=== PATIENT | female | born 1935 | race Caucasian/White ===

== ENCOUNTER → 2017-01-05 | Outpatient (CLI) | payer OTHER, BC | LOC: BHFA 15:30 | PROVIDERS: ATTEND Internal Medicine Cardiovascular Disease | DX: I35.1 Nonrheumatic aortic (valve) insufficiency (principal); I25.10 Atherosclerotic heart disease of native coronary artery without angina pectoris ==

== ENCOUNTER → 2017-02-20 | Outpatient (CLI) | payer OTHER, BC | LOC: FIMAGING 11:11 | PROVIDERS: ATTEND Internal Medicine | DX: Z12.31 Encounter for screening mammogram for malignant neoplasm of breast (principal) | CPT/HCPCS: G0202 ==

== ENCOUNTER 2017-03-02 13:37 | Emergency (ER) | payer OTHER, BC ==
--- NOTE | 2017-03-02 14:34 | EDPHY ---
H & P Stated Complaint: BRUISING AND PAIN (RESOLVED) IN LEFT CALF HPI/ROS: HPI CHIEF COMPLAINT: Left calf pain, ecchymosis left index finger. HISTORY OF PRESENT ILLNESS: This patient very pleasant 81-year-old female, significant past medical history for hypertension, hyperlipidemia, not on any anticoagulation however does take baby aspirin 81 mg 3 times per week. She presents emergency room with left calf pain intermittently over the past 3-4 days. Also states she noticed some bruising to the medial aspect of her left index finger. Does not remember any significant trauma. She denies chest pain or shortness of breath. Denies fever. She is unsure if she injured her calf or has a clot. That is what brought her to the emergency room for evaluation. Past Medical History: Hypertension, hyperlipidemia, aspirin 3 times per week. Past Surgical History: No recent surgery Social History: Denies daily use of drugs alcohol tobacco products Family History: Noncontributory ROS REVIEW OF SYSTEMS: A comprehensive 10 point review of systems is otherwise negative aside from elements mentioned in the history of present illness. Exam Constitutional appears well nontoxic triage nursing summary reviewed, vital signs reviewed, awake/alert. Eyes normal conjunctivae and sclera, EOMI, PERRLA. HENT normal inspection, atraumatic, moist mucus membranes, no epistaxis, neck supple/ no meningismus, no raccoon eyes. Respiratory clear to auscultation bilaterally, normal breath sounds, no respiratory distress, no wheezing. Cardiovascular rate normal, regular rhythm, no murmur, no edema, distal pulses normal. Gastrointestinal soft, non-tender, no rebound, no guarding, normal bowel sounds, no distension, no pulsatile mass. Genitourinary no CVA tenderness. Musculoskeletal left lower extremity: No significant left lower extremity swelling, neurovascularly intact with a CT cap refill, good pulse. Nontender. No signs of redness or swelling. no midline vertebral tenderness, full range of motion, no calf swelling, no tenderness of extremities, no meningismus, good pulses, neurovascularly intact. Skin area of 2 x 2 cm ecchymosis medial aspect left index finger. Nontender, no infection. Neurologic awake, alert and oriented x 3, AAOx3, moves all 4 extremities equally, motor intact, sensory intact, CN II-XII intact, normal cerebellar, normal vision, normal speech. Psychiatric normal mood/affect. Heme/Lymph/Immune no lymphadenopathy. Differential Diagnosis: Includes but is not limited to in a particular order, platelet inhibition from aspirin use causing easy bruising, DVT left lower extremity, musculoskeletal strain. Medical Decision Making: Plan for this patient ultrasound left lower extremity. Check basic blood work. Re-evaluation: 1609: Blood work reviewed platelets are appropriate. H&H appropriate. Ultrasound of left lower extremity reported to me by Dr. Youngblood negative for DVT. Updated patient about test results. She is comfortable going home. Source: Patient - Personal History Current Tetanus/Diphtheria Vaccine: Unsure - Medical/Surgical History Hx Asthma: No Hx Chronic Respiratory Disease: No Hx Diabetes: No Hx Cardiac Disease: Yes Hx Renal Disease: No Hx Cirrhosis: No Hx Alcoholism: No Hx HIV/AIDS: No Hx Splenectomy or Spleen Trauma: No Other PMH: HTN, HLD, moderate mitral regur, lumbar compression,cholesterol. surg-hyst and 2 benign breast biopsies - Social History Smoking Status: Never smoked Constitutional: Initial Vital Signs Temperature (C) 36.7 C 03/02/17 13:49 Heart Rate 72 03/02/17 13:49 Respiratory Rate 18 03/02/17 13:49 Blood Pressure 171/68 H 03/02/17 13:49 O2 Sat (%) 96 03/02/17 13:49 O2 Delivery Mode Room Air Allergies/Adverse Reactions: Penicillins Allergy (Severe, Verified 01/05/16 12:23) Swelling/neck,face,throat Sulfa (Sulfonamide Antibiotics) Allergy (Intermediate, Verified 01/05/16 12:23) Rash Home Medications: Medication Instructions Recorded Acetaminophen [Tylenol ES 500 mg 500 mg PO BID PRN 06/01/15 (*)] Carvedilol [Coreg (*)] 6.25 mg PO BIDMEAL 06/01/15 Herbals/Supplements -Info Only 1 ea PO DAILY 06/01/15 Lisinopril [Zestril 40 mg (*)] 40 mg PO DAILY 06/01/15 Multivitamins W-Minerals [Thera M 1 each PO DAILY 06/01/15 Plus Tablet (*)] Rosuvastatin Calcium [Crestor] 10 mg PO MWF@21 06/01/15 Fosamax 70 MG (RX) 01/05/16 Medical Decision Making - Diagnostics Imaging Results: Imaging Impressions Extremity Venous Study 03/02/17 14:38 Impression: No deep venous thrombosis left leg. Findings and recommendations discussed with Emergency Department physician, Vishnu López M.D., at 1601 hours, on March 02, 2017. Final report concurs with initial preliminary interpretation. - Data Points Laboratory Results: Laboratory Results 03/02/17 14:40 03/02/17 14:40 03/02/17 03/02/17 14:40 14:40 WBC 5.57 10^3/uL 10^3/uL (3.80-9.50) RBC 4.44 10^6/uL 10^6/uL (4.18-5.33) Hgb 14.4 g/dL g/dL (12.6-16.3) Hct 42.0 % % (38.0-47.0) MCV 94.6 fL fL (81.5-99.8) MCH 32.4 pg pg (27.9-34.1) MCHC 34.3 g/dL g/dL (32.4-36.7) RDW 12.6 % % (11.5-15.2) Plt Count 163 10^3/uL 10^3/uL (150-400) MPV 9.1 fL fL (8.7-11.7) Neut % (Auto) 76.4 % H % (39.3-74.2) Lymph % (Auto) 16.0 % % (15.0-45.0) [place] % (Auto) 5.4 % % (4.5-13.0) Eos % (Auto) 1.1 % % (0.6-7.6) Baso % (Auto) 0.7 % % (0.3-1.7) Nucleat RBC Rel Count 0.0 % % (0.0-0.2) Absolute Neuts (auto) 4.26 10^3/uL 10^3/uL (1.70-6.50) Absolute Lymphs (auto) 0.89 10^3/uL L 10^3/uL (1.00-3.00) Absolute Monos (auto) 0.30 10^3/uL 10^3/uL (0.30-0.80) Absolute Eos (auto) 0.06 10^3/uL 10^3/uL (0.03-0.40) Absolute Basos (auto) 0.04 10^3/uL 10^3/uL (0.02-0.10) Absolute Nucleated RBC 0.00 10^3/uL 10^3/uL (0-0.01) Immature Gran % 0.4 % % (0.0-1.1) Immature Gran # 0.02 10^3/uL 10^3/uL (0.00-0.10) Sodium 141 mEq/L mEq/L (134-144) Potassium 4.1 mEq/L mEq/L (3.5-5.2) Chloride 105 mEq/L mEq/L (97-110) Carbon Dioxide 21 mEq/l L mEq/l (22-31) Anion Gap 15 mEq/L mEq/L (8-16) BUN 36 mg/dL H mg/dL (7-23) Creatinine 1.1 mg/dL H mg/dL (0.6-1.0) Estimated GFR 48 Glucose 112 mg/dL H mg/dL (70-100) Calcium 10.1 mg/dL mg/dL (8.5-10.4) Departure - Departure Disposition: Home, Routine, Self-Care Clinical Impression: Ecchymosis Condition: Good Instructions: Ecchymosis (ED) Additional Instructions: 1. Please return emergency room if you have any worsening symptoms questions or concerns includes worsening leg pain further bruising. Referrals: Ulises Mazariegos MD [Primary Care Provider] - As per Instructions
[2017-03-02 14:50] LABS: % IMMATURE GRANULYOCYTES 0.4 % (0.0-1.1); ABSOLUTE IMMATURE GRANULOCYTES 0.02 10^3/uL (0.00-0.10); ADD DIFF? NO; ADD MORPH? NO; ADD SCAN? NO; ATYPICAL LYMPHOCYTE FLAG 0 (0-99); FRAGMENT RBC FLAG 0 (0-99); HEMOGLOBIN 14.4 g/dL (12.6-16.3); LEFT SHIFT FLG 0 (0-99); LIPEMIA HEMOLYSIS FLAG 90 (0-99); MEAN CELL HEMOGLOBIN 32.4 pg (27.9-34.1); MEAN CELL HEMOGLOBIN CONCENTR. 34.3 g/dL (32.4-36.7); MEAN CELL VOLUME 94.6 fL (81.5-99.8); MEAN PLATELET VOLUME 9.1 fL (8.7-11.7); PLATELET CLUMPS FLAG 10 (0-99); PLATELET COUNT 163 10^3/uL (150-400); RED BLOOD CELL COUNT 4.44 10^6/uL (4.18-5.33); RED CELL DISTRIBUTION WIDTH 12.6 % (11.5-15.2)
[2017-03-02 15:07] LABS: ANION GAP 15 mEq/L (8-16); CALCIUM 10.1 mg/dL (8.5-10.4); CARBON DIOXIDE 21 mEq/l (22-31); CHLORIDE 105 mEq/L (97-110); CREATININE 1.1 mg/dL (0.6-1.0); GLOMERULAR FILTRATION RATE 48; GLUCOSE 112 mg/dL (70-100); POTASSIUM 4.1 mEq/L (3.5-5.2); SODIUM 141 mEq/L (134-144)
[2017-03-02 16:37] VITALS: BP 144/56; PULSE 64; RESP 20; TEMP 98.2; O2SAT 98
== END 2017-03-02 16:37 | disposition home or self-care (01) ==
DX: M79.81 Nontraumatic hematoma of soft tissue (principal); I10 Essential (primary) hypertension

== ENCOUNTER 2017-07-20 16:47 | Inpatient (IN) | payer OTHER, BC ==
--- NOTE | 2017-07-20 17:37 | EDPHY ---
H & P Time Seen by Provider: 07/20/17 17:28 HPI/ROS: Chief complaint. Hypertension, dizzy HPI. 81-year-old female presents emergency department with high blood pressure this morning. She has a history of hypertension. She takes her blood pressure at home daily. This morning she found her systolic blood pressure was 199. She is unaware of the diastolic pressure. She took extra blood pressure medication this morning. She was also then dizzy this morning and had a slight headache this afternoon. She took meclizine this morning and Tylenol this afternoon which relieved her headache. She has dizziness this worse with head movement and standing. No visual change. No chest discomfort no shortness of breath. She denies focal weakness or paresthesias. No recent upper respiratory symptoms though lots of allergies. Patient also complains of some urinary frequency ROS Constitutional. no fever/chills, no weakness. High blood pressure this morning Eyes. no problems with vision ENT. no sore throat, no nasal drainage Cardiovascular. no chest pain Respiratory. no shortness of breath, no cough Abdominal. no abdominal pain, no nausea/vomiting, no diarrhea . Urinary frequency MS. no calf pain/swelling, no neck/back pain, no joint pain Skin. no rash Lymph. no swollen glands Neuro. Mild headache this afternoon; dizziness especially with head movement Past Medical/Surgical History: Hypertension, mitral regurgitation, dyslipidemia, history of vertigo Social History: , nonsmoker, no alcohol Smoking Status: Never smoked Physical Exam: General Appearance: Alert pleasant well-developed female mild distress vital signs are stable with current blood pressure 187/62 Eyes: Pupils equal and round no pallor or injection; no nystagmus. ENT, tympanic membranes are normal. Oropharynx normal without injection Respiratory: There are no retractions, lungs are clear to auscultation. Cardiovascular: Regular rate and rhythm. Gastrointestinal: Abdomen is soft and nontender, no masses, bowel sounds normal. Neurological: Awake and alert, sensory and motor exams grossly normal. Speech is normal. Cranial nerves are normal. There is no pronator drift. Finger-to- nose and [id number] are intact bilaterally Skin: Warm and dry, no rashes. Musculoskeletal: Neck is supple nontender. Extremities symmetrical, full range of motion. Psychiatric: Patient is oriented X 3, there is no agitation. Constitutional: Initial Vital Signs Temperature (C) 36.7 C 07/20/17 16:57 Heart Rate 55 L 07/20/17 16:57 Respiratory Rate 18 07/20/17 16:57 Blood Pressure 187/62 H 07/20/17 16:57 O2 Sat (%) 97 07/20/17 16:57 O2 Delivery Mode Room Air Allergies/Adverse Reactions: Penicillins Allergy (Severe, Verified 07/20/17 16:56) Swelling/neck,face,throat Sulfa (Sulfonamide Antibiotics) Allergy (Intermediate, Verified 07/20/17 16:56) Rash Home Medications: Medication Instructions Recorded Carvedilol [Coreg (*)] 6.25 mg PO BIDMEAL 06/01/15 Lisinopril [Zestril 40 mg (*)] 40 mg PO DAILY 06/01/15 Medical Decision Making - Diagnostics EKG Interpretation: EKG interpreted by me shows normal sinus rhythm with normal interval. Appears to be left axis deviation. QRS is otherwise normal; there is no significant ST elevation or depression. There is no arrhythmia. The rate is 52 Patient's EKG is unchanged from previous EKG in May 2015 Imaging Results: Imaging Impressions Chest X-Ray 07/20/17 19:07 Impression: Suspect cardiomegaly. A routine PA and lateral chest would be helpful, to better evaluate the cardiothoracic equilibrium. Head CT 07/20/17 19:12 Impression: 1. The brain is stable since 2014. No evidence for hemorrhage. 2. 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 The patient could possibly have acute sphenoid sinusitis. Results called to Dr. Jerez at 7:50 PM. General information for patients regarding this examination can be found at [email or web address]. If you have questions or comments about this report, please contact me at (hospital) or [phone] (cell). Chest x-ray reviewed by me significant for LVH but otherwise no evidence for pneumonia Noncontrast head CT shows recurrence sphenoid sinus disease but no evidence for hemorrhage. This is reviewed by me and discussed with Dr. Fonseca Procedures: IV normal saline. Meclizine orally and Zofran IV ED Course/Re-evaluation: Re-evaluation at 7:05 p.m.. Patient, her daughter, and I discussed laboratory evaluation and EKG findings. We discussed treatment plan including recommendation for admission. They expressed understanding and agreement I consulted and discussed the case with Dr. Morales, hospitalist who agrees to the admission I consulted and discussed case with Dr. Sun, cardiology will see the patient in consultation Differential Diagnosis: I considered malignant hypertension, intracranial bleeding, vertigo and labyrinthitis. She really had no chest discomfort but has an elevated troponin. - Data Points Laboratory Results: Laboratory Results 07/20/17 18:05 07/20/17 18:05 07/20/17 07/20/17 07/20/17 18:25 18:05 18:05 WBC 5.41 10^3/uL 10^3/uL (3.80-9.50) RBC 4.48 10^6/uL 10^6/uL (4.18-5.33) Hgb 14.8 g/dL g/dL (12.6-16.3) Hct 41.8 % % (38.0-47.0) MCV 93.3 fL fL (81.5-99.8) MCH 33.0 pg pg (27.9-34.1) MCHC 35.4 g/dL g/dL (32.4-36.7) RDW 12.5 % % (11.5-15.2) Plt Count 180 10^3/uL 10^3/uL (150-400) MPV 9.5 fL fL (8.7-11.7) Neut % (Auto) 71.4 % % (39.3-74.2) Lymph % (Auto) 20.1 % % (15.0-45.0) [place] % (Auto) 6.7 % % (4.5-13.0) Eos % (Auto) 0.7 % % (0.6-7.6) Baso % (Auto) 0.7 % % (0.3-1.7) Nucleat RBC Rel Count 0.0 % % (0.0-0.2) Absolute Neuts (auto) 3.86 10^3/uL 10^3/uL (1.70-6.50) Absolute Lymphs (auto) 1.09 10^3/uL 10^3/uL (1.00-3.00) Absolute Monos (auto) 0.36 10^3/uL 10^3/uL (0.30-0.80) Absolute Eos (auto) 0.04 10^3/uL 10^3/uL (0.03-0.40) Absolute Basos (auto) 0.04 10^3/uL 10^3/uL (0.02-0.10) Absolute Nucleated RBC 0.00 10^3/uL 10^3/uL (0-0.01) Immature Gran % 0.4 % % (0.0-1.1) Immature Gran # 0.02 10^3/uL 10^3/uL (0.00-0.10) Sodium 136 mEq/L mEq/L (134-144) Potassium 4.3 mEq/L mEq/L (3.5-5.2) Chloride 101 mEq/L mEq/L (97-110) Carbon Dioxide 22 mEq/l mEq/l (22-31) Anion Gap 13 mEq/L mEq/L (8-16) BUN 29 mg/dL H mg/dL (7-23) Creatinine 1.1 mg/dL H mg/dL (0.6-1.0) Estimated GFR 48 Glucose 104 mg/dL H mg/dL (70-100) Calcium 9.8 mg/dL mg/dL (8.5-10.4) Troponin I 0.043 ng/mL H ng/mL (0.000-0.034) Urine Color PALE YELLOW Urine Appearance CLEAR Urine pH 5.0 (5.0-7.5) Ur Specific [place] 1.004 (1.002-1.030) Urine Protein NEGATIVE (NEGATIVE) Urine Ketones NEGATIVE (NEGATIVE) Urine Blood NEGATIVE (NEGATIVE) Urine Nitrate NEGATIVE (NEGATIVE) Urine Bilirubin NEGATIVE (NEGATIVE) Urine Urobilinogen NEGATIVE EU EU (0.2-1.0) Ur Leukocyte Esterase NEGATIVE (NEGATIVE) Urine RBC 1-3 /hpf /hpf (0-3) Urine WBC 1-3 /hpf /hpf (0-3) Ur Epithelial Cells NONE SEEN /lpf /lpf (NONE-1+) Urine Mucus TRACE /lpf /lpf (NONE-1+) Urine Glucose NEGATIVE (NEGATIVE) Medications Given: Discontinued Medications Sodium Chloride (Ns) 500 mls @ 1,000 mls/hr IV EDNOW ONE PRN Reason: Protocol Stop: 07/20/17 18:20 Last Admin: 07/20/17 18:51 Dose: 500 mls Meclizine HCl (Meclizine Hcl) 25 mg PO EDNOW ONE Stop: 07/20/17 17:53 Last Admin: 07/20/17 18:51 Dose: 25 mg Ondansetron HCl (Zofran) 4 mg IVP EDNOW ONE Stop: 07/20/17 17:52 Last Admin: 07/20/17 18:50 Dose: 4 mg Departure - Departure Disposition: [facility] Clinical Impression: Vertigo, Elevated troponin Condition: Fair
[2017-07-20] MEDS ORDERED: NS 500 ML IV ONE (17:51)
[2017-07-20] MEDS ORDERED: ONDANSETRON 4 MG/2 ML VIAL IVP ONE (17:51)
[2017-07-20] MEDS ORDERED: MECLIZINE HCL 25 MG TAB PO ONE (17:52)
--- NOTE | 2017-07-20 18:16 | CPEKG ---
Heart Rate: 52 RR Interval: 1154 P-R Interval: 164 QRSD Interval: 88 QT Interval: 476 QTC Interval: 443 P [place]: 47 QRS [place]: -3 T Wave [place]: 29 EKG Severity - NORMAL ECG - EKG Impression: SINUS RHYTHM Electronically Signed By: Moy Jerez 20-Jul-2017 19:25:25
[2017-07-20 18:29] LABS: % IMMATURE GRANULYOCYTES 0.4 % (0.0-1.1); ABSOLUTE IMMATURE GRANULOCYTES 0.02 10^3/uL (0.00-0.10); ADD DIFF? NO; ADD MORPH? NO; ADD SCAN? NO; ATYPICAL LYMPHOCYTE FLAG 0 (0-99); FRAGMENT RBC FLAG 0 (0-99); HEMATOCRIT 41.8 % (38.0-47.0); HEMOGLOBIN 14.8 g/dL (12.6-16.3); LEFT SHIFT FLG 0 (0-99); LIPEMIA HEMOLYSIS FLAG 90 (0-99); MEAN CELL HEMOGLOBIN CONCENTR. 35.4 g/dL (32.4-36.7); MEAN CELL VOLUME 93.3 fL (81.5-99.8); MEAN PLATELET VOLUME 9.5 fL (8.7-11.7); PLATELET CLUMPS FLAG 0 (0-99); PLATELET COUNT 180 10^3/uL (150-400); RED BLOOD CELL COUNT 4.48 10^6/uL (4.18-5.33); RED CELL DISTRIBUTION WIDTH 12.5 % (11.5-15.2)
[2017-07-20 18:38] LABS: COLOR PALE YELLOW; LEUKOCYTE ESTERASE,URINE NEGATIVE (NEGATIVE); NITRITE,URINE NEGATIVE (NEGATIVE)
[2017-07-20 18:47] LABS: MUCUS TRACE /lpf (NONE-1+)
[2017-07-20 18:48] LABS: ANION GAP 13 mEq/L (8-16); CALCIUM 9.8 mg/dL (8.5-10.4); CARBON DIOXIDE 22 mEq/l (22-31); CHLORIDE 101 mEq/L (97-110); CREATININE 1.1 mg/dL (0.6-1.0); GLOMERULAR FILTRATION RATE 48; GLUCOSE 104 mg/dL (70-100); POTASSIUM 4.3 mEq/L (3.5-5.2); SODIUM 136 mEq/L (134-144)
[2017-07-20 18:59] LABS: TROPONIN I 0.043 ng/mL (0.000-0.034)
[2017-07-20] MEDS ORDERED: ONDANSETRON DISINTEGRATING 4 MG TAB PO PRN (19:56)
[2017-07-20] MEDS ORDERED: ONDANSETRON 4 MG/2 ML VIAL IVP PRN (19:56)
[2017-07-20] MEDS ORDERED: MECLIZINE HCL 25 MG TAB PO PRN (21:38)
[2017-07-20] MEDS ORDERED: NS 1,000 ML IV SCH (21:45)
--- NOTE | 2017-07-20 22:04 | GHP ---
[f rep st] HISTORY AND PHYSICAL DATE OF ADMISSION: 07/20/2017 CHIEF COMPLAINT: Elevated blood pressure and dizziness. PRIMARY MATHEMATICS ACADEMIC CHAIR: Dr. 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 She awoke this morning, approximately 8:30, and felt very woozy and dizzy when standing up. She took her blood pressure medications, meclizine and Tylenol. She took 2 doses of her Coreg because her blood pressure was elevated 199/70. She repeated this at 1:00 p.m. and it was 167/73. With the dizziness, she felt nauseated, shaky and with chills. Denies chest pain or shortness of breath. No palpitations. Denies PND, lower extremity edema or orthopnea. No fevers, diarrhea. No ill contacts. No slurred speech. No visual changes. Walks 2 miles a day without chest pain or shortness of breath. Actually walked 5 miles yesterday without issue. She also does water aerobics 3 times a week without any symptoms. She did travel to [facility] back in May. She had a little bit of lower extremity edema after a flight, that has since resolved. No calf pain. Echocardiogram December 2016, showed LVEF 60%. Diastolic heart failure. Moderate AR , mild MR. RVSP 39. Nuclear stress test in 2014 was negative for ischemia. REVIEW OF SYSTEMS: I completed a 10-point review of systems, negative except as noted in HPI. PAST MEDICAL HISTORY: 1. Coronary artery calcification. 2. Hyperlipidemia. 3. 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 4. Diastolic heart failure. 5. Hypertension. 6. Osteoporosis. PAST SURGICAL HISTORY: Two breast biopsies, cholecystectomy, hysterectomy. SOCIAL HISTORY: Lives alone in [place]. No alcohol, tobacco, or illicits. FAMILY HISTORY: Mother, father and maternal grandmother with MIs. Dad with a stroke. HOME MEDICATIONS: Tylenol, herbal supplement, aspirin 81 mg daily, lisinopril 40, Coreg 6.25 mg twice daily. ALLERGIES: Penicillin, sulfa. PHYSICAL EXAMINATION: VITAL SIGNS: Blood pressure 187/62, now 172/65. Was as high as 199/74, heart rate in the 52-66, respirations 16, 93% on room air. GENERAL: Well-appearing female, sitting up in bed, no acute distress. HEENT: PERRLA. EOMI. Oropharynx clear. CV: Jose Alberto regular. No murmurs, gallops, rubs. No lower extremity edema. LUNGS: Clear, no crackles. ABDOMEN: Soft, nontender. Mild left lower quadrant. Tender palpation. : No suprapubic tenderness. MUSCULOSKELETAL: 5/5 upper lower extremity strength. NEURO: 2 through 12 intact. Normal sensation to touch. No change in dizziness with change of position in bed. PSYCH: Alert and oriented x3. LABORATORY DATA: WBC 5.1, hemoglobin 14, hematocrit 41, platelets 180. Sodium 136, potassium 4.3, chloride 101, carbon dioxide 22, anion gap 13, BUN 29, creatinine is 1.1, baseline is 0.9-1, glucose 104, troponin is 0.043. Chest x- ray is personally reviewed by me, minimal blunting of costophrenic angle. EKG is personally reviewed by me, normal sinus rhythm, Q in 2 seen on prior. ASSESSMENT/PLAN: 1. Accelerated hypertension: Complaint of headache now, no neuro deficits. PRN. hydralazine. Resume home medications in the morning. Creatinine remains stable. 2. Mild acute kidney injury. Creatinine mildly elevated 1.1. We will resume ALMA DELIA in the morning. Give gentle IV fluids tonight. 3. Dizziness. We will check orthostatics. 4. Indeterminate troponin: Minimally elevated at 0.43. Suspect this is in the setting of accelerated hypertension. Denies chest pain, shortness of breath. Recent echocardiogram with no wall motion abnormalities. Had a nuclear stress test in 2014 that was negative. We will monitor on telemetry and repeat troponin. Cardiology was consulted from the emergency room. 5. Hyperlipidemia. Was taken off statin due to myalgias. DIET: Cardiac. DEEP VENOUS THROMBOSIS PROPHYLAXIS: Lovenox. DISPOSITION: Patient warrants observation admission given accelerated hypertension, warranting telemetry and repeat troponin. /[id number]/MODL MTDD
[2017-07-21 04:44] LABS: ANION GAP 12 mEq/L (8-16); CALCIUM 9.4 mg/dL (8.5-10.4); CARBON DIOXIDE 22 mEq/l (22-31); CHLORIDE 110 mEq/L (97-110); GLOMERULAR FILTRATION RATE 53; GLUCOSE 91 mg/dL (70-100); POTASSIUM 4.3 mEq/L (3.5-5.2); SODIUM 144 mEq/L (134-144)
[2017-07-21 04:50] LABS: TROPONIN I 0.091 ng/mL (0.000-0.034)
[2017-07-21] MEDS: CARVEDILOL 6.25 MG TAB PO SCH ×2 (08:13→17:34)
[2017-07-21] MEDS: ENOXAPARIN 40 MG/0.4 ML SYR SC SCH (08:13)
[2017-07-21] MEDS ORDERED: Herbals/Supplements -Info Only PO SCH (09:00)
[2017-07-21] MEDS ORDERED: ROSUVASTATIN CALCIUM 10 MG TAB PO SCH (09:45)
--- NOTE | 2017-07-21 09:45 | PDCARPN ---
Cardiology Progress Note Assessment/Plan: Assessment/plan: 81 yo F with CAC, VHD (mod AR, mild MR), dyslipidemia, HTN. Admitted 07/20 with vertigo and HTN. Trops minimally positive. 1. Pos trop: ECG normal. No angina. Likely subendocardial ischemia in the setting of HTN. Agree with noninvasive risk stratification tomorrow (had caffeine this morning) Continue ASA, BP mx. Rechallenge crestor 2.5 twice weekly. Echo today to eval for WMA 2. VHD: stable clinically. Echo for WMA will also reassess valves. Past hx SBE 3. HTN; improved. Continue home medications 4. CAC: last MPI in 2014 was normal. Rechallenge statin, cont ASA 07/21/17 09:39 Subjective: Ros has no angina or SOB. Has continued to walk and do water aerobics with no cardiovascular limitations. Was taken off statin in May due to muscle aches , which have improved. Vertigo better today. Did not have syncope yesterday. Reviewed/Discussed With: family, hospitalist Objective: Vital Signs (8 Hrs) Temp Pulse Resp BP Pulse Ox 07/21/17 03:48 36.8 C 62 16 133/49 H 94 Intake/Output (24 Hrs) 07/20/17 07/21/17 07/22/17 05:59 05:59 05:59 Intake Total 910 Output Total 800 Balance 110 Intake: Oral (ml) 200 IV Infused (ml) 710 Ns 1,000 ml @ 100 mls/hr 200 IV CONT JOHANA Rx#: [id number] Output: Urine (ml) 800 Bedside Commode 800 Other: Weight 52.163 kg Intake Quantity Yes Sufficient Number of Voids Bedside Commode 1 Number of Stools Bedside Commode 1 NAD JVP <10 RRR no m/r/g Lungs CTAB No edema Result Diagrams: 07/20/17 18:05 07/21/17 03:10 Cardiac Labs: Cardiac Lab Results (72 Hrs) 07/21/17 07/20/17 03:10 23:25 Troponin I 0.091 H 0.095 H EKG: NSR Telemetry: NSR ICD10 Worksheet Patient Problems: Problems Problem Status Onset Elevated troponin Acute Vertigo Acute
[2017-07-21] MEDS: ACETAMINOPHEN 325 MG TAB PO PRN ×2 (11:47→21:10)
--- NOTE | 2017-07-21 11:58 | HOSPPROG ---
Hospitalist Progress Note Assessment/Plan: 81-year-old admitted with vertigo in the setting of elevated blood pressure. She is noted to have calcifications on her coronary artery and an elevated troponin on admission. I did discuss this case with Dr. Helena Stanford. # dizziness in the setting of high. Symptoms improved but persistent in a milder form. Unclear if this is benign positional vertigo or related to her hypertension. * Monitor blood pressure and treat * consider PT # elevated troponin, with coronary calcifications noted on previous scanning. Patient will need additional midnight stay for further risk stratification in hospital because of positive troponins. * Stress test planned for a.m. * Continue monitor troponin still improved * Discussed with Dr. Stanford # history of endocarditis # history of hypertension Subjective: Patient new to me and chart reviewed. Feeling better has some very mild dizziness when she turns her head but is able to sit up in bed without significant symptoms. She has a history of this in the past about 2 years ago which is similar. Objective: Vital Signs Temp Pulse Resp BP Pulse Ox 36.6 C 56 L 15 137/57 H 93 07/21/17 11:37 07/21/17 11:37 07/21/17 11:37 07/21/17 11:37 07/21/17 11:37 Laboratory Results 07/21/17 03:10 07/20/17 07/21/17 07/22/17 05:59 05:59 05:59 Intake Total 910 Output Total 800 Balance 110 - Physical Exam Constitutional: no apparent distress Eyes: PERRL, anicteric sclera, EOMI Ears, Nose, Mouth, Throat: moist mucous membranes, hearing normal Cardiovascular: regular rate and rhythym, no murmur, rub, or gallop Respiratory: no respiratory distress, clear to auscultation Gastrointestinal: normoactive bowel sounds, soft, non-tender abdomen Genitourinary: no bladder fullness Skin: warm Neurologic: AAOx3 Psychiatric: interacting appropriately, not anxious ICD10 Worksheet Patient Problems: Problems Problem Status Onset Vertigo Acute Elevated troponin Acute
--- NOTE | 2017-07-21 12:08 | ECHO ---
[email or web address] [address] [address] Main: [phone] Fax: Transthoracic Echocardiogram Name: PATRIC VOSS MR#: [id number] Study Date: 07/21/2017 Study Time: 10:31 AM Date of : 1935 Age: 81 year(s) Height: 149.9 cm (59 in.) Weight: 52.16 kg (115 lb.) BSA: 1.46 m2 Gender: Female Examination: Echo Indication: Vertigo, Elevated Troponins, Eval LV Wall motion Image Quality: Contrast: Requested by: Helena Stanford BP: 139 mmHg/82 mmHg Heart Rate: Rhythm: Indication: Vertigo, Elevated Troponins, Eval LV Wall motion Procedure Staff Forming Process Worker: Reese Aldridge Reading Physician: Toñito Sun Requesting Provider: Conclusions: Normal size left ventricle. No LV hypertrophy. Global hypercontractility of the left ventricle. EF is 74 %. No regional wall motion abnormality. Normal size right ventricle. Mild mitral valve regurgitation is present. Mild aortic valve regurgitation is present. Compared to the previous exam of 01/05/17 there has been no significant change.. Measurements: Chambers Valvular Assessment AV/MV Valvular Assessment TV/PV Normal Normal Normal Name Value Range Name Value Range Name Value Range Ao Michelle (MM): 2.4 cm (2.2 cm-3.7 AV Vmax: 1.34 m/s (1 m/s-1.7 PV Vmax: 0.79 m/s (0.6 m/s-0.9 cm) m/s) m/s) IVSd (2D): 0.9 cm (0.6 cm-1.1 AV maxP mmHg ( - ) PV PGmax: 2 mmHg ( - ) cm) LVOT Vmax: 1.01 m/s (0.7 m/s-1.1 LVDd (2D): 4.2 cm (3.9 cm-5.3 m/s) cm) AR (PHT): 783 ms ( - ) LVDs (2D): 2.4 cm (2.1 cm-4 MV E Vmax: 0.50 m/s ( - ) cm) MV A Vmax: 0.63 m/s ( - ) LVPWd (2D): 1.2 cm ( - ) MV E/A: 0.79 ( - ) LVEF (2D): 74 (>=54 %) Continued Measurements: Chambers Valvular Assessment AV/MV Name Value Name Value Patient: PATRIC VOSS Study Date: 07/21/2017 Page 1 of 2 10:31 AM LADs Lon.9 cm MV E' Septal: 0.04 m/s LA Area: 14.6 cm2 MV E/E' Septal: 13.90 LA Volume: 38 ml MV E/E' Lateral: 6.90 LA Volume Index: 26.0 ml/m2 AR Vmax: 4.23 cm/s Findings: Left Ventricle: Normal size left ventricle. No LV hypertrophy. Global hypercontractility of the left ventricle. EF is 74 %. No regional wall motion abnormality. Normal diastolic LV function. Right Ventricle: Normal size right ventricle. Normal RV function. Left Atrium: The left atrium is normal in size. Right Atrium: The right atrium is normal in size. Mitral Valve: The mitral valve is normal in appearance. Mild mitral valve regurgitation is present. No mitral stenosis is present. Aortic Valve: The aortic valve is tri-leaflet. The aortic valve is normal in appearance. Mild aortic valve regurgitation is present. Tricuspid Valve: The tricuspid valve appears normal. Trivial tricuspid valve regurgitation. Pulmonic Valve: The pulmonic valve is normal in appearance and function. Aorta: The aorta is normal. Pericardium: No pericardial effusion. Exam Comments: Compared to the previous exam of 01/05/17 there has been no significant change.. (No Signature Object) Patient: PATRIC VOSS Study Date: 07/21/2017 Page 2 of 2 10:31 AM D:_[id number]
--- NOTE | 2017-07-21 12:42 | ASMTCMCOM ---
CM Note CM Note Notes: 07/21/2017 Case Management Note Met w/pt. Pt lives alone with daughter and son in law nearby. She is very active walking 2 miles + per day. She drives and is able to prepare her meals independently. She is a pt of Dr. Ta. She has been to PT outpatient in the past for back pain. There are no PT or OT evals ordered. Case Management d/c poc: anticipating independent discharge when medically stable. Case Management available if needs change. Date Signed: 07/21/2017 12:42 PM Electronically Signed By:Selin Elizalde RN
--- NOTE | 2017-07-21 14:05 | PDMN ---
Medical Necessity Medical necessity: Change to IP, as of 07/21/17, per MD; los >2 mn for ongoing eval/tx of dizziness in the setting of high blood pressure & elevated troponin w /coronary calcifications; hx endocarditis, diastolic heart failure & HTN; per progress note & order 07/21/17
[2017-07-22] MEDS: ACETAMINOPHEN 325 MG TAB PO PRN ×2 (04:16→10:23)
[2017-07-22] MEDS ORDERED: ASPIRIN EC 81 MG TAB PO SCH (08:00)
--- NOTE | 2017-07-22 08:13 | HOSPPROG ---
Hospitalist Progress Note Assessment/Plan: #Indeterminate troponin: suspect subendothelial with accelerated HTN. Lexiscan with trace mid-septal ischemia. No intervention warranted. Medically manage. 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 Repeat echo unchanged #Dizziness/vertigo: minimal today. Suspect due to elevated BP. #HTN: ACEI, add low-dose norvasc #Disp: DC today. FU with Dr. Stanford 1 week Subjective: no CP or SOB Objective: Vital Signs Temp Pulse Resp BP Pulse Ox 36.6 C 61 17 156/77 H 95 07/22/17 08:00 07/22/17 08:00 07/22/17 08:00 07/22/17 08:00 07/22/17 08:00 Laboratory Results 07/21/17 03:10 07/21/17 07/22/17 07/23/17 05:59 05:59 05:59 Intake Total 910 1780 Output Total 800 Balance 110 1780 - Physical Exam Constitutional: no apparent distress Eyes: PERRL Ears, Nose, Mouth, Throat: moist mucous membranes Cardiovascular: regular rate and rhythym Respiratory: no respiratory distress, no rales or rhonchi Gastrointestinal: normoactive bowel sounds, soft, non-tender abdomen Genitourinary: no bladder fullness Skin: warm, normal color Musculoskeletal: full muscle strength, no muscle tenderness Neurologic: AAOx3, CN II-XII Intact Psychiatric: interacting appropriately ICD10 Worksheet Patient Problems: Problems Problem Status Onset Elevated troponin Acute Vertigo Acute
[2017-07-22] MEDS: ENOXAPARIN 40 MG/0.4 ML SYR SC SCH (09:07)
[2017-07-22] MEDS ORDERED: REGADENOSON 0.4 MG/5 ML SYR IVP ONE (09:21)
[2017-07-22] MEDS: CARVEDILOL 6.25 MG TAB PO SCH (10:23)
--- NOTE | 2017-07-22 10:58 | PDCARPN ---
Cardiology Progress Note Chief Complaint: Syncope, Elevated Trop Assessment/Plan: Assessment: 81 yo F with CAC, VHD (mod AR, mild MR), dyslipidemia, HTN. Admitted 07/20 with vertigo and HTN. Trops minimally positive. 1. Pos trop: ECG normal. No angina. Likely subendocardial ischemia in the setting of HTN. Continue ASA, BP mx. Rechallenge crestor 2.5 twice weekly. Echo yesterday showed NWMA. Nuclear Bernard stress test today showed no significant ischemia. Medical management, continue ASA and statin. 2. VHD: stable clinically. Echo showed no signifiicant valve change. Past hx SBE 3. HTN; improved. Add back Home Lisinopril 40 mg, and add Amlodipine 2.5 mg QD.Continue Coreg BID. Plan: Bernard Nuc today showed no significant ischemia, trace at most. Medications reviewed with her for BP management: Coreg, Lisinopril, and Amlodipine. Follow up with Dr Helena Stanford in one week. Appt was made for Jul 30, at 9:45. 07/22/17 14:36 Subjective: I feel good today. No H/A. Anxious to go home. Reviewed/Discussed With: family, hospitalist, multidisciplinary team (Dr Stanford, and Dr Bowen.) Time Spent With Patient: 30 minutes Objective: Vital Signs (8 Hrs) Temp Pulse Resp BP Pulse Ox 07/22/17 08:00 36.6 C 61 17 156/77 H 95 07/22/17 03:59 36.7 C 64 13 162/81 H 97 Intake/Output (24 Hrs) 07/21/17 07/22/17 07/23/17 05:59 05:59 05:59 Intake Total 1780 Balance 1780 Intake: Oral (ml) 1780 Other: Number of Voids Toilet 3 Number of Stools Toilet 1 Result Diagrams: 07/20/17 18:05 07/21/17 03:10 - Physical Exam Cardiovascular: regular rate and rhythm, no murmurs, no rubs Peripheral Pulses: 2+: dorsalis-pedis (R), dorsalis-pedis (L) Respiratory: clear to auscultate bilat, no crackles, no wheezes Skin: warm, no edema Neurologic: AAOx3 Psychiatric: cooperative, interactive ICD10 Worksheet Patient Problems: Problems Problem Status Onset Elevated troponin Acute Vertigo Acute
[2017-07-22 13:22] VITALS: BP 184/66; PULSE 63; RESP 16; TEMP 97.8; O2SAT 97
--- NOTE | 2017-07-22 14:20 | CPR ---
[f rep st] NONINVASIVE CARDIAC PROCEDURE REPORT DATE OF PROCEDURE: 07/22/2017 REASON FOR TEST: Syncope, troponin bump. Resting blood pressure 178/82, heart rate 67 and regular, O2 sat 97%. Resting EKG shows a sinus arrhythmia with a rate of 54-77, and PACs. STRESS PORTION/LEXISCAN NUCLEAR STRESS TEST: Lexiscan was injected rapidly, followed by saline flush . Cardiolite was then injected, followed by saline flush. There were no EKG changes. Her blood pre ssure 176/78 peak. Peak heart rate 115. She did have abdominal upset. Caffeine was given. RECOVERY: She did spontaneously recover. Resting recovery blood pressure 176/78, heart rate 107, ox ygen saturation 98%. She did develop a headache in recovery. Caffeine was given, which was alleviat ing the discomfort. At this time, she currently is stable for nuclear imaging. /[id number]/MODL
--- NOTE | 2017-07-22 14:40 | ASDISCHSUM ---
Discharge Information Plan Status:Home with No Needs Medically Cleared to Leave:07/21/2017 Discharge Date:07/22/2017 02:06 PM CM D/C Disposition:Home, Routine, Self-Care ADT D/C Disposition:Home, Routine, Self-Care Projected Discharge Date:07/22/2017 12:00 AM Transportation at D/C:Family Discharge Delay Reason: Follow-Up Date:07/22/2017 12:00 AM Discharge Slot: Final Diagnosis: Placement Information Patient Contact Information Contact Name:EDWARDBELMARK Relationship:Daughter Address: City: [facility] Phone: [facility] Code: Email: Financial Information Financial Class: Primary Plan Desc:MEDICARE INPATIENT Primary Plan Number:[id number] Secondary Plan Desc: OUT OF STATE INDEMNITY Secondary Plan Number:[id number] Assessment Information [facility] CM Progress Note CM Note CM Note Notes: 07/21/2017 Case Management Note Met w/pt. Pt lives alone with daughter and son in law nearby. She is very active walking 2 miles + per day. She drives and is able to prepare her meals independently. She is a pt of Dr. Ta. She has been to PT outpatient in the past for back pain. There are no PT or OT evals ordered. Case Management d/c poc: anticipating independent discharge when medically stable. Case Management available if needs change. Date Signed: 07/21/2017 12:42 PM Electronically Signed By:Selin Elizalde RN Intervention Information
--- NOTE | 2017-07-22 20:11 | GDS ---
[f rep st] DISCHARGE SUMMARY DISCHARGE DIAGNOSES: 1. Coronary artery calcification. 2. Valvular heart disease (moderate aortic regurgitation,mitral regurgitation). 3. Dyslipidemia. 4. Hypertension. 5. Dizziness. 6. Indeterminate troponin. HISTORY OF PRESENT ILLNESS: A pleasant 81-year-old female with known coronary artery calcification, valvular heart disease, hypertension, who presents with dizziness. She woke up the morning of admiss ion at 8:30 and felt very woozy when standing up. At that time, she checked her blood pressure was e levated 199/70, thus took 2 doses of her Coreg, meclizine and Tylenol. She repeated a blood pressure at 1:00 and it was 167/73. With the dizziness, she also felt nauseated, shaky with chills. No ches t pain or shortness of breath. She actually is very active, walking several miles a week as well as exercise classes without chest pain or shortness of breath. HOSPITAL COURSE BY PROBLEM: 1. Dizziness: Minimal now. May have been related to elevated blood pressure. No neuro deficits. 2. Indeterminate troponin: Known coronary artery calcification. She underwent Lexiscan, which show ed trace mid septal wall ischemia. I discussed the case with Cardiology and no further evaluation wa rranted. Medically managed with lisinopril, statin 2 times weekly, beta scout. We will add low-do se Norvasc. 3. Accelerated hypertension: Likely reason for dizziness. Resume Coreg, lisinopril and add amlodip ine 2.5 mg. 4. Valvular heart disease: No evidence of volume overload. Echocardiogram was unchanged from prior . 5. Hyperlipidemia: Statin. DISPOSITION: Patient is stable for discharge home. NEW MEDICATIONS: 1. Crestor 2.5 mg Thursday, . 2. Meclizine 25 mg twice daily. 3. Norvasc 2.5 mg daily. FOLLOW UP: Dr. Stanford in 1 week. /[id number]/MODL
== END 2017-07-22 14:06 | disposition home or self-care (01) | DRG 303 ==
LOC: INTOOBSV 19:22 → F2W 20:14 → OBSVTOIN 07-21 11:59
PROVIDERS: ADMIT Internal Medicine; ATTEND Internal Medicine
DX: I25.10 Atherosclerotic heart disease of native coronary artery without angina pectoris (principal); I08.0 Rheumatic disorders of both mitral and aortic valves; E78.5 Hyperlipidemia, unspecified; I10 Essential (primary) hypertension
CPT/HCPCS: 96374; G0378; J1650; J2405; J2785

== ENCOUNTER → 2017-08-05 | Outpatient (CLI) | payer OTHER, BC | LOC: BHFA 11:00 | PROVIDERS: ATTEND Internal Medicine Cardiovascular Disease | DX: R00.2 Palpitations (principal) ==

== ENCOUNTER 2017-09-28 21:49 | Inpatient (IN) | payer OTHER, BC ==
--- NOTE | 2017-09-28 22:12 | EDPHY ---
H & P Stated Complaint: 180s-200s this evening at home BPs HPI/ROS: HPI CHIEF COMPLAINT: Hypertension HISTORY OF PRESENT ILLNESS: Patient very pleasant 81-year-old female has a history of hypertension she presents emergency room with high blood pressure. She denies any chest pain or shortness of breath she does complain of a very 2/ 10 mild frontal headache. Her headache this evening cause her check her blood pressure and she had readings of 180 systolic at home. She states the highest was was 200 systolic. She states she has been compliant with medication as been taking her blood pressure medication. She took her Coreg 6.25 this evening and then additionally took another dose of her Coreg 3.125 prior to coming to the emergency room. She called her on-call physician was referred to the ER. She denies any chest pain or shortness of breath. She does report that she has a 2/10 very mild headache. No focal numbness or tingling. Denies neck pain. Denies visual disturbance. States she had a normal day today. She has not been sick recently. Past Medical History: Hypertension, hyperlipidemia Past Surgical History: No recent surgery Social History: Lives locally denies drugs alcohol tobacco Family History: Noncontributory ROS REVIEW OF SYSTEMS: A comprehensive 10 point review of systems is otherwise negative aside from elements mentioned in the history of present illness. Exam Constitutional appears well nontoxic no acute distress, triage nursing summary reviewed, vital signs reviewed, awake/alert. Vital signs noted at triage hypertensive. Eyes normal conjunctivae and sclera, EOMI, PERRLA. HENT normal inspection, atraumatic, moist mucus membranes, no epistaxis, neck supple/ no meningismus, no raccoon eyes. Respiratory clear to auscultation bilaterally, normal breath sounds, no respiratory distress, no wheezing. Cardiovascular rate normal, regular rhythm, no murmur, no edema, distal pulses normal. Gastrointestinal soft, non-tender, no rebound, no guarding, normal bowel sounds, no distension, no pulsatile mass. Genitourinary no CVA tenderness. Musculoskeletal no midline vertebral tenderness, full range of motion, no calf swelling, no tenderness of extremities, no meningismus, good pulses, neurovascularly intact. Skin pink, warm, & dry, no rash, skin atraumatic. Neurologic awake, alert and oriented x 3, AAOx3, moves all 4 extremities equally, motor intact, sensory intact, CN II-XII intact, normal cerebellar, normal vision, normal speech. Psychiatric normal mood/affect. Heme/Lymph/Immune no lymphadenopathy. Differential Diagnosis: Includes but is not limited to in a particular order hip symptomatic hypertension, hypertensive urgency, hypertensive emergency, renal failure, heart failure Medical Decision Making: Plan for this patient check basic blood work full verify rep, check kidney function and EKG and troponin. Re-evaluate. Re-evaluation: EKG interpretation by me on record in [id number] system. Impression time of EKG 2228, sinus rhythm rate of 62. No acute ischemic change appreciated. No ST elevation no ST depression no significant T-wave abnormalities unremarkable EKG. Very similar to previous EKG dated 07/20/2017. 2311: Blood pressure currently 154/77 much improved. Patient resting comfortably no chest pain or shortness of breath. Denies headache. 2345: Blood work is reviewed. Her EKG is nonischemic and stable from her previous EKGs. She has no chest pain or chest tightness. Her troponin was slightly elevated however it is chronically elevated. Blood work is reassuring with normal kidney function. I did go re-evaluate at this time she is resting comfortably no acute distress has no complaints. However was noted that her blood pressure did go back up to the 190 systolic. I have ordered her 5 mg IV hydralazine and some gentle IV hydration fluids. Will re-evaluate. EKG interpretation by me on record in [employer] system. Impression this is a repeat EKG time of repeat EKG 0010, sinus rhythm rate of [address] elevation. No significant ST depression. Full-dose aspirin as been ordered due to the positive troponin Patient has been admitted to the hospitalist service for further evaluation of her hypertension and elevated troponin. She is chest pain-free. Source: Patient - Personal History Current Tetanus/Diphtheria Vaccine: No Current Tetanus Diphtheria and Acellular Pertussis (TDAP): No - Medical/Surgical History Hx Asthma: No Hx Chronic Respiratory Disease: No Hx Diabetes: No Hx Cardiac Disease: Yes Hx Renal Disease: No Hx Cirrhosis: No Hx Alcoholism: No Hx HIV/AIDS: No Hx Splenectomy or Spleen Trauma: No Other PMH: HTN, HLD, moderate mitral regur, lumbar compression,cholesterol. surg-hyst and 2 benign breast biopsies, bilat cataracts. vertigo, cholecystectomy,hysterectomy - Social History Smoking Status: Never smoked Constitutional: Initial Vital Signs Temperature (C) 36.5 C 09/28/17 21:51 Heart Rate 65 09/28/17 21:51 Respiratory Rate 18 09/28/17 21:51 Blood Pressure 185/70 H 09/28/17 21:51 O2 Sat (%) 96 09/28/17 21:51 O2 Delivery Mode Room Air Allergies/Adverse Reactions: Penicillins Allergy (Severe, Verified 09/28/17 21:57) Swelling/neck,face,throat Sulfa (Sulfonamide Antibiotics) Allergy (Intermediate, Verified 09/28/17 21:57) Rash Home Medications: Medication Instructions Recorded Carvedilol [Coreg (*)] 6.25 mg PO BIDMEAL 06/01/15 Lisinopril [Zestril 40 mg (*)] 40 mg PO DAILY 06/01/15 Acetaminophen [Tylenol ES 500 mg 1,000 mg PO Q6 PRN 07/20/17 (*)] Aspirin EC [Aspirin EC 81 mg (*)] 81 mg PO MOWEFR@0800 07/20/17 Herbals/Supplements -Info Only 1 ea PO DAILY 07/20/17 Meclizine HCl [Meclizine HCl 25 mg 25 mg PO BID PRN #30 tab 07/22/17 (RX,OTC)] Multivitamins [Multivitamin (*)] 1 each PO DAILY 09/29/17 Propylene Glycol/Peg 400 [Systane 1 drop EACHEYE DAILY 09/29/17 0.3-0.4% Eye Drops] Rosuvastatin Calcium [Crestor] 2.5 mg PO MWF@21 09/29/17 amLODIPine BESYLATE [Norvasc 2.5 2.5 mg PO HS 09/29/17 mg (*)] Medical Decision Making - Data Points Laboratory Results: Laboratory Results 09/29/17 04:50 09/29/17 04:50 Medications Given: Acetaminophen (Tylenol) 1,000 mg PO Q6 PRN PRN Reason: Headache Stop: 03/28/18 09:36 Last Admin: 09/30/17 11:19 Dose: 1,000 mg Amlodipine Besylate (Norvasc) 2.5 mg PO BID JOHANA Stop: 03/29/18 20:59 Last Admin: 09/30/17 21:22 Dose: 2.5 mg Aspirin Buffered (Aspirin Ec) 81 mg PO MOWEFR@0800 [facility] Stop: 03/29/18 07:59 Last Admin: 09/30/17 08:36 Dose: 81 mg Carboxymethylcellulose (Refresh Plus Drops 0.5%) 1 shahnaz EACHEYE DAILY [facility] Stop: 03/29/18 08:59 Last Admin: 09/30/17 08:36 Dose: 1 drop Carvedilol (Coreg) 6.25 mg PO BIDMEAL [facility] Stop: 03/28/18 09:37 Last Admin: 09/30/17 17:37 Dose: 6.25 mg Lisinopril (Zestril) 40 mg PO DAILY [facility] Stop: 03/28/18 09:44 Last Admin: 09/30/17 08:35 Dose: 40 mg Rosuvastatin Calcium (Crestor) 2.5 mg PO MWF@21 [facility] Stop: 03/29/18 20:59 Last Admin: 09/30/17 21:24 Dose: 2.5 mg Discontinued Medications Amlodipine Besylate (Norvasc) 2.5 mg PO DAILY [facility] Stop: 03/28/18 12:54 Last Admin: 09/30/17 08:35 Dose: 2.5 mg Aspirin (Aspirin) 325 mg PO EDNOW ONE Stop: 09/29/17 00:09 Last Admin: 09/29/17 00:16 Dose: 325 mg Enoxaparin Sodium (Lovenox) 40 mg SC DAILY [facility] Stop: 03/28/18 08:59 Last Admin: 09/30/17 10:13 Dose: 40 mg Hydralazine HCl (Apresoline) 5 mg IVP EDNOW ONE Stop: 09/28/17 23:36 Last Admin: 09/28/17 23:48 Dose: 5 mg Sodium Chloride (Ns) 500 mls @ 0 mls/hr IV ONCE ONE PRN Reason: Wide Open Stop: 09/28/17 23:36 Last Admin: 09/28/17 23:48 Dose: 500 mls Lorazepam (Ativan Injection) 0.5 mg IVP EDNOW ONE Stop: 09/29/17 00:02 Last Admin: 09/29/17 00:12 Dose: 0.5 mg Departure - Departure Disposition: Home, Routine, Self-Care Clinical Impression: Elevated troponin Hypertension Qualifiers: Hypertension type: essential hypertension Qualified Code(s): I10 - Essential ( primary) hypertension Condition: Good
--- NOTE | 2017-09-28 22:30 | CPEKG ---
Heart Rate: 62 RR Interval: 968 P-R Interval: 152 QRSD Interval: 92 QT Interval: 412 QTC Interval: 419 P [place]: 44 QRS [place]: 1 T Wave [place]: 39 EKG Severity - NORMAL ECG - EKG Impression: SINUS RHYTHM Electronically Signed By: Vishnu López 29-Sep-2017 06:50:26
[2017-09-28 23:03] LABS: PLATELET COUNT 190 10^3/uL (150-400)
[2017-09-28] MEDS ORDERED: NS 500 ML IV ONE (23:35)
[2017-09-28] MEDS ORDERED: hydrALAZINE 20 MG/ML VIAL IVP ONE (23:35)
[2017-09-29] MEDS ORDERED: LORazepam 2 MG/ML INJ IVP ONE (00:01)
[2017-09-29] MEDS ORDERED: ASPIRIN 325 MG TAB PO ONE (00:08)
--- NOTE | 2017-09-29 00:17 | CPEKG ---
Heart Rate: 90 RR Interval: 667 P-R Interval: 144 QRSD Interval: 88 QT Interval: 392 QTC Interval: 480 P [place]: 59 QRS [place]: 9 T Wave [place]: 50 EKG Severity - ABNORMAL ECG - EKG Impression: SINUS RHYTHM EKG Impression: ATRIAL PREMATURE COMPLEX EKG Impression: CONSIDER POSTERIOR INFARCT Electronically Signed By: Vishnu López 29-Sep-2017 06:50:26
[2017-09-29] MEDS ORDERED: LORazepam 0.5 MG TAB PO PRN (03:44)
[2017-09-29] MEDS ORDERED: ONDANSETRON 4 MG/2 ML VIAL IVP PRN (03:44)
[2017-09-29] MEDS ORDERED: ACETAMINOPHEN 325 MG TAB PO PRN (03:44)
[2017-09-29 05:08] LABS: PLATELET COUNT 169 10^3/uL (150-400)
[2017-09-29 05:36] LABS: CREATINE KINASE 82 IU/L (0-156)
--- NOTE | 2017-09-29 08:40 | PDGENHP ---
History and Physical - Chief Complaint Headache, elevated blood pressures - History of Present Illness Source-patient provides history appears reliable. EMR reviewed and case discussed with ED provider. The patient with an extensive cardiac workup during her hospital stay in July of 2017. Study results were also reviewed. HPI - pleasant 81-year-old female with past medical history significant for HTN , HLD, moderate MR, history of lumbar compression fractures who presents emergency department today with complaints of worsening bitemporal headache. Patient reports that she has been having a worsening headache since earlier in the daytime. She has been taking her carvedilol twice daily at 6.25 mg and lisinopril 40 mg daily. Patient took an additional dose of 3.125 mg of carvedilol for elevated blood pressures systolic greater than 200. Patient denies any chest pain or palpitations no shortness of breath today but she did have some the evening prior. Patient also reported 1 single episode of mid abdominal pressure with associated nausea but no vomiting. During patient's previous hospital stay she was noted to have elevated blood pressures and this elevated troponins and had associated vertigo. Today patient has headache.. Patient subsequently underwent echocardiogram which showed normal EF and moderate MR as well as in nuclear medicine stress test which did show trace the ischemia on which they felt would be best managed all medical therapy. Patient was subsequently discharged with her carvedilol, lisinopril, addition of amlodipine. Patient had subsequent followup patient with Dr. Helena Satnford she was recommended to have a Holter monitor which was significant for PVCs per the patient. Additionally she began to have low blood pressures in the morning and so amlodipine was discontinued and patient continues only on Coreg and lisinopril. Patient also reports that she had influenza a 3 weeks ago. Symptoms now resolved. History Information - Allergies/Home Medication List Allergies/Adverse Reactions: Penicillins Allergy (Severe, Verified 09/28/17 21:57) Swelling/neck,face,throat Sulfa (Sulfonamide Antibiotics) Allergy (Intermediate, Verified 09/28/17 21:57) Rash Home Medications: Carvedilol [Coreg (*)] 6.25 mg PO BIDMEAL 06/01/15 [Last Taken 09/28/17 18:00] Lisinopril [Zestril 40 mg (*)] 40 mg PO DAILY 06/01/15 [Last Taken 09/28/17] Acetaminophen [Tylenol ES 500 mg (*)] 1,000 mg PO Q6 PRN 07/20/17 [Last Taken 21:00] Aspirin EC [Aspirin EC 81 mg (*)] 81 mg PO MOWEFR@0800 07/20/17 [Last Taken ] Herbals/Supplements -Info Only 1 ea PO DAILY 07/20/17 [Last Taken Unknown] Multivitamins [Multivitamin (*)] 1 each PO DAILY 09/29/17 [Last Taken Unknown] Propylene Glycol/Peg 400 [Systane 0.3-0.4% Eye Drops] 1 drop EACHEYE DAILY 09/29 [Last Taken Unknown] Rosuvastatin Calcium [Crestor] 2.5 mg PO MWF@21 09/29/17 [Last Taken 09/25/16] amLODIPine BESYLATE [Norvasc 2.5 mg (*)] 2.5 mg PO HS 09/29/17 [Last Taken 09/28] I have personally reviewed and updated: family history, medical history, social history, surgical history - Past Medical History Additional medical history: HTN, HLD, moderate MR, lumbar compression, nuclear stress with trivial ischemic changes on medical management 07/2017 - Surgical History Additional surgical history: Hysterectomy, cholecystectomy, breast biopsy x2, bilateral cataract extraction with lens with reflex - Family History Additional family history: Father and mother with history of CAD. Father age 55. Mother age 64. Brother with history of pancreatic cancer CC. The patient does have 3 adult children who are healthy and 6 grandchildren who are also healthy. - Social History Smoking Status: Never smoked Alcohol Use: None Drug Use: None Additional social history: Patient lives alone. She does not smoke drink or do drugs. COR - full. Review of Systems Review of Systems: ROS: 10pt was reviewed & negative except for what was stated in HPI & below Constitutional: Denies: chills, fever, malaise EENMT: Reports: nose congestion (Seasonal allergies). Denies: blurred vision, sore throat Cardiac: Reports: palpitations (Occasional). Denies: chest pain, edema, lightheadedness Respiratory: Reports: cough (Right occasional cough but improving), shortness of breath (Single episode of shortness of breath last evening none currently) Gastrointestinal: Reports: nausea. Denies: vomitting, diarrhea Genitourinary: Reports: frequency. Denies: dysuria, hematuria Muscolosketal: Denies: joint swelling, muscle pain Skin: Reports: no symptoms Neurological: Reports: no symptoms. Denies: anxiety, depressed, tingling, weakness Hematologic/Lymphatic: Reports: no symptoms Physical Exam Physical Exam: Selected Entries 09/28/17 21:51 Blood Pressure Automatic Method Heart Rate 65 Respiratory 18 Rate O2 Sat (%) 96 Temperature (C) 36.5 C Blood Pressure 185/70 H Mean Arterial 108 H Pressure (MAP) O2 Delivery Room Air Mode Temperature Oral Source Temp Pulse Resp BP Pulse Ox 36.4 C 63 16 150/66 H 94 09/29/17 07:14 09/29/17 07:14 09/29/17 07:14 09/29/17 07:14 09/29/17 07:14 Constitutional: no apparent distress, appears nourished, No chronically ill appearing, No uncomfortable Eyes: PERRL, anicteric sclera, EOMI, No scleral injection Ears, Nose, Mouth, Throat: moist mucous membranes, no oral mucosal ulcers Cardiovascular: regular rate and rhythym, no murmur, rub, or gallop, pulses symmetric bilaterally, No edema Peripheral Pulses: 2+: dorsalis-pedis (R), dorsalis-pedis (L) Respiratory: no respiratory distress, no rales or rhonchi, clear to auscultation , No reduced air movement, No expiratory wheeze Gastrointestinal: normoactive bowel sounds, soft, non-tender abdomen, no palpable masses Genitourinary: no bladder tenderness, No lindsay in urethra Skin: warm, normal color, no rashes or abrasions Musculoskeletal: full muscle strength (Sits up independently), No generalized weakness Neurologic: AAOx3, sensation intact bilaterally, CN II-XII Intact, No facial droop Psychiatric: interacting appropriately, not anxious, not encephalopathic, thought process linear Lab Data & Imaging Review 09/29/17 04:50 09/29/17 04:50 Laboratory Tests 07/20/17 09/28/17 09/28/17 23:25 22:40 22:40 WBC 6.74 RBC 4.28 Hgb 13.8 Hct 39.9 MCV 93.2 MCH 32.2 MCHC 34.6 RDW 12.9 Plt Count 190 MPV 9.1 Neut % (Auto) 71.0 Lymph % (Auto) 19.4 Winston % (Auto) 7.9 Eos % (Auto) 1.0 Baso % (Auto) 0.6 Nucleat RBC Rel Count 0.0 Absolute Neuts (auto) 4.78 Absolute Lymphs (auto) 1.31 Absolute Monos (auto) 0.53 Absolute Eos (auto) 0.07 Absolute Basos (auto) 0.04 Absolute Nucleated RBC 0.00 Immature Gran % 0.1 Immature Gran # 0.01 D-Dimer 0.53 H Sodium 134 L Potassium 4.7 Chloride 101 Carbon Dioxide 20 L Anion Gap 13 BUN 28 H Creatinine 1.0 Estimated GFR 53 Glucose 121 H Calcium 10.1 Magnesium 1.9 Troponin I 0.037 H WBC 5.02 10^3/uL (3.80-9.50) 09/29/17 04:50 RBC 3.96 10^6/uL (4.18-5.33) L 09/29/17 04:50 Hgb 12.8 g/dL (12.6-16.3) 09/29/17 04:50 Hct 37.5 % (38.0-47.0) L 09/29/17 04:50 MCV 94.7 fL (81.5-99.8) 09/29/17 04:50 MCH 32.3 pg (27.9-34.1) 09/29/17 04:50 MCHC 34.1 g/dL (32.4-36.7) 09/29/17 04:50 RDW 12.9 % (11.5-15.2) 09/29/17 04:50 Plt Count 169 10^3/uL (150-400) 09/29/17 04:50 MPV 9.0 fL (8.7-11.7) 09/29/17 04:50 Neut % (Auto) 56.3 % (39.3-74.2) 09/29/17 04:50 Lymph % (Auto) 32.7 % (15.0-45.0) 09/29/17 04:50 Winston % (Auto) 9.2 % (4.5-13.0) 09/29/17 04:50 Eos % (Auto) 1.2 % (0.6-7.6) 09/29/17 04:50 Baso % (Auto) 0.4 % (0.3-1.7) 09/29/17 04:50 Nucleat RBC Rel Count 0.0 % (0.0-0.2) 09/29/17 04:50 Absolute Neuts (auto) 2.83 10^3/uL (1.70-6.50) 09/29/17 04:50 Absolute Lymphs (auto) 1.64 10^3/uL (1.00-3.00) 09/29/17 04:50 Absolute Monos (auto) 0.46 10^3/uL (0.30-0.80) 09/29/17 04:50 Absolute Eos (auto) 0.06 10^3/uL (0.03-0.40) 09/29/17 04:50 Absolute Basos (auto) 0.02 10^3/uL (0.02-0.10) 09/29/17 04:50 Absolute Nucleated RBC 0.00 10^3/uL (0-0.01) 09/29/17 04:50 Immature Gran % 0.2 % (0.0-1.1) 09/29/17 04:50 Immature Gran # 0.01 10^3/uL (0.00-0.10) 09/29/17 04:50 Sodium 142 mEq/L (135-145) 09/29/17 04:50 Potassium 4.5 mEq/L (3.5-5.2) 09/29/17 04:50 Chloride 108 mEq/L (97-110) 09/29/17 04:50 Carbon Dioxide 24 mEq/l (22-31) 09/29/17 04:50 Anion Gap 10 mEq/L (8-16) 09/29/17 04:50 BUN 26 mg/dL (7-23) H 09/29/17 04:50 Creatinine 0.9 mg/dL (0.6-1.0) 09/29/17 04:50 Estimated GFR > 60 09/29/17 04:50 Glucose 95 mg/dL (70-100) 09/29/17 04:50 Calcium 9.5 mg/dL (8.5-10.4) 09/29/17 04:50 Magnesium 1.9 mg/dL (1.6-2.3) 09/29/17 04:50 Creatine Kinase 82 IU/L (0-156) 09/29/17 04:50 Troponin I 0.337 ng/mL (0.000-0.034) H 09/29/17 04:50 TSH 3.200 uIU/mL (0.465-4.680) 09/29/17 04:50 EKG additional interpertation: NSR 60s. q wave III. no acute ST changes QTc 419. repeat EKG NSR 90s with PACs otherwise unchanged. reviewed EKG from 2016 - similar to first ekg from today. Assessment & Plan Assessment: #Hypertensive urgency (Acute) - patient with elevated blood pressures the and symptomatic with slightly elevated troponin. Will plan to trend. Blood pressure is improved after dosing of hydralazine. Patient was also given some IV fluid hydration in the emergency department which will hold encourage oral intake. Further discussion with Cardiology this AM as patient has already had a full evaluation in July. Continue patient's Coreg and lisinopril 1 med rec has been completed. #Elevated troponin (Acute) - will continue to trend. Previous evaluation as noted above. #Headache - symptoms have improved with improvement in blood pressure. patient denies any focal deficits #HLD - continue statin. #Moderate MR - monitor clinically. #PAC - on telemetry. FEN - s/p IVF. oral hydration. electrolyte replacement prn. cardiac diet PPX - SCDs. lovenox if patient should stay additional day COR - FULL DISPO - Admit to observation on PCU for close telemetry monitoring pending repeated labs and cardiology recs.
[2017-09-29] MEDS: ENOXAPARIN 40 MG/0.4 ML SYR SC SCH (09:48)
[2017-09-29] MEDS: ACETAMINOPHEN 500 MG TAB PO PRN ×2 (11:06→22:29)
[2017-09-29] MEDS: CARVEDILOL 6.25 MG TAB PO SCH ×2 (11:06→17:30)
[2017-09-29] MEDS: LISINOPRIL 40 MG TAB PO SCH (11:07)
--- NOTE | 2017-09-29 16:33 | ASMTCMCOM ---
CM Note CM Note Notes: 09/29/2017 Case Management Note Met pt during rounds this morning. Pt admitted for hypertensive crisis. There are no d/c case management needs identified d/t pt age, activity levels and family support prior to admission. There are no PT or OT evals ordered at this time. Case Management d/c poc: anticipating independent with follow up as directed. Case Management available if needs change. Date Signed: 09/29/2017 04:32 PM Electronically Signed By:Selin Elizalde RN
--- NOTE | 2017-09-29 17:12 | PDCARPN ---
Cardiology Progress Note Chief Complaint: Head aches with associated hypertension Assessment/Plan: Assessment: Patient is a 81 y/o female, well known to [facility] (Dr. 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 Blood pressure elevations have been noted, and recent outpatient visit with Dr. Dorinda Stanford (09-24-17) with blood pressure at that time of 154/84 mm Hg, but more concerns about nocturnal palpitations. Given these symptoms, arrangements for Cardionet were made after holter monitor only revealed occasional PVCs (but no atrial fibrillation). Compliance with antihypertensive therapy has been very good, but elevation in pressures continues to be noted. Associated with the headaches was an episode of abdominal pressure and nausea, but no emesis. Hospitalization in the recent past (for influenza) with mild elevation in troponin noted at that time. Stress testing with a small septal region of "possible" ischaemia noted. Elevation in troponin was thought to be secondary to the flu, and no further invasive testing was recommended. Echocardiogram was also performed recently ( with aforementioned admission) and revealed possible progression of the degree of mitral regurgitation, with preserved LVEF and normal wall motion. Amlodipine was attempted with low blood pressures noted, and therapy was subsequently stopped. At present, the patient is feeling very well. No cardiovascular complaints ( chest pains or pressure, PND or orthopnea) and no headache. Blood pressure was noted to be 150 mm Hg systolic with lack of symptoms. Plan: (1) Would maintain therapy on Coreg and Lisinopril as at present - amlodipine seemed to assist with reduction in blood pressure, and would attempt lowest dose (2.5 mg) over next 12-24 hours (2) Continue therapy on ASA given CAD and CV risks (3) Crestor to continue with HLP history (with annual assessment of cholesterol and LFTs) (4) No indications (at present) for repeat echocardiography or repeat MPI testing (both were done in 08/02) (5) Will follow patient in tomorrow Subjective: No cardiovascular complaints Objective: Vital Signs (8 Hrs) Temp Pulse Resp BP Pulse Ox 09/29/17 16:03 36.7 C 64 16 153/63 H 97 09/29/17 14:23 145/67 H 09/29/17 13:13 36.6 C 68 14 145/67 H 95 09/29/17 12:47 150/69 H 09/29/17 11:07 125/57 H 09/29/17 11:06 63 125/57 H 09/29/17 09:44 125/57 H Intake/Output (24 Hrs) 09/28/17 09/29/17 09/30/17 05:59 05:59 05:59 Intake Total 500 300 Output Total 400 400 Balance 100 -100 Intake: Oral (ml) 300 IV Infused (ml) 500 Output: Urine (ml) 400 400 Toilet 400 400 Other: Weight 52.4 kg Number of Voids Toilet 1 Result Diagrams: 09/29/17 04:50 09/29/17 04:50 Cardiac Labs: Cardiac Lab Results (72 Hrs) 09/29/17 09/29/17 11:50 04:50 Troponin I 0.338 H 0.337 H Telemetry: normal sinus rhythm Echocardiogram: no echocardiography with this admission normal LVEF noted in 08/02 with reports of "moderate" MR - Physical Exam Constitutional: WDWN, healthy appearing, no apparent distress Eyes: PERRL, EOMI Ears, Nose, Mouth, Throat: moist mucous membranes Cardiovascular: regular rate and rhythm, systolic murmur (II/ CHINMAY) Peripheral Pulses: 2+: dorsalis-pedis (R), dorsalis-pedis (L) Respiratory: clear to auscultate bilat, no crackles, no wheezes Gastrointestinal: normoactive bowel sounds Skin: no rashes, no edema Musculoskeletal: no muscular tenderness Neurologic: AAOx3, CN II-XII grossly intact Psychiatric: cooperative, interactive, following commands ICD10 Worksheet Patient Problems: Problems Problem Status Onset Elevated troponin Acute Hypertension Acute Vertigo Acute
--- NOTE | 2017-09-29 17:42 | HOSPPROG ---
Hospitalist Progress Note Assessment/Plan: * HTN urgency -continue lisinopril, coreg -retry low dose Norvasc 2.5mg * Troponin elevation -recent stress test with "slight reversibility" -consult cards regarding possible need for cath * Hyperlipidemia -continue Crestor Subjective: still with headache this am. Bilateral shantel-oral transient numbness, resolved. She has had this in past Objective: Vital Signs Temp Pulse Resp BP Pulse Ox 36.7 C 72 16 136/67 H 97 09/29/17 16:03 09/29/17 17:32 09/29/17 16:03 09/29/17 17:32 09/29/17 16:03 09/28/17 09/29/17 09/30/17 05:59 05:59 05:59 Intake Total 300 Output Total 400 Balance -100 Laboratory Tests 09/28/17 09/29/17 09/29/17 22:40 04:50 11:50 Troponin I 0.037 H 0.337 H 0.338 H EKG viewed, my personal interpretation is - NSR, no ischemic changes OLD CHART REVIEW - discharged on norvasc 2.5 mg last admit, med mgmt for slightly abnormal stress test case d/w cardiology - they will consult - Physical Exam Constitutional: no apparent distress, appears nourished, not in pain Cardiovascular: regular rate and rhythym, no murmur, rub, or gallop Respiratory: no respiratory distress, no rales or rhonchi, clear to auscultation Gastrointestinal: normoactive bowel sounds, soft, non-tender abdomen, no palpable masses Skin: no rashes or abrasions, no fluctuance, no induration Neurologic: AAOx3, sensation intact bilaterally Psychiatric: interacting appropriately, not anxious, not encephalopathic, thought process linear ICD10 Worksheet Patient Problems: Problems Problem Status Onset Elevated troponin Acute Hypertension Acute Vertigo Acute
[2017-09-30 04:41] LABS: PLATELET COUNT 156 10^3/uL (150-400)
[2017-09-30] MEDS: LISINOPRIL 40 MG TAB PO SCH (08:35)
[2017-09-30] MEDS: CARVEDILOL 6.25 MG TAB PO SCH ×2 (08:35→17:37)
[2017-09-30] MEDS: CARBOXYMETHYLCELLULOSE 0.5% 0.4 ML DROPERETTE EACHEYE SCH (08:36)
[2017-09-30] MEDS: ASPIRIN EC 81 MG TAB PO SCH (08:36)
[2017-09-30] MEDS ORDERED: NON-FORMULARY NEW DRUG (Propylene Glycol/Peg 400 [Systane 0.3-0.4% Eye Drops] 1 DROP) EACHEYE SCH (09:00)
[2017-09-30] MEDS: ENOXAPARIN 40 MG/0.4 ML SYR SC SCH (10:13)
--- NOTE | 2017-09-30 10:57 | PDMN ---
Medical Necessity Medical necessity: Change to IP, as of 09/29/17, per MD; los >2 mn for ongoing eval/tx of headaches w/associated hypertensive urgency; admit for further monitoring, Cardiology consult & med management; hx recent influenza; per progress note & order 09/29/17
[2017-09-30] MEDS: ACETAMINOPHEN 500 MG TAB PO PRN (11:19)
--- NOTE | 2017-09-30 11:46 | PDCARPN ---
Cardiology Progress Note Chief Complaint: Patient doing well today, but mild headache was noted. Assessment/Plan: Assessment: 09-30-17 No cardiovascular complaints were voiced, but as above, the patient has noted a mild headache. Initial blood pressure (by my assessment) was 183/84 mm Hg. With deep breathing for all of about 2 minutes, her reassessed blood pressure was noted to be 153/80 mm Hg. She was dosed with CCB (amlodipine 2.5 mg) this morning, about 1-1.5 hours prior. Patient voiced concerns about the choice of this therapy given history of hypotension with it's use (after four doses) not long ago. No cardiovascular complaints of chest pains or pressure. Ongoing mild elevation to the troponin (not trending down, or up - appreciably). I discussed the case with Dr. Dorinda Stanford two days prior, and reviewed MPI testing from 08/02 with the patient. I also spoke via phone with the patient's daughter to facilitate understanding of the route (non invasive at present) that we are following. Angiography is an option, but given (a) lack of symptoms , (b) no dynamic ST/T wave changes, and (c) stable troponin elevation - thought secondary to the degree of hypertension that was noted upon arrival, we are working the optimization of medical therapy more aggressively. 09-29-17 Patient is a 81 y/o female, well known to [facility] (Dr. 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 Blood pressure elevations have been noted, and recent outpatient visit with Dr. Dorinda Stanford (09-24-17) with blood pressure at that time of 154/84 mm Hg, but more concerns about nocturnal palpitations. Given these symptoms, arrangements for Cardionet were made after holter monitor only revealed occasional PVCs (but no atrial fibrillation). Compliance with antihypertensive therapy has been very good, but elevation in pressures continues to be noted. Associated with the headaches was an episode of abdominal pressure and nausea, but no emesis. Hospitalization in the recent past (for influenza) with mild elevation in troponin noted at that time. Stress testing with a small septal region of "possible" ischaemia noted. Elevation in troponin was thought to be secondary to the flu, and no further invasive testing was recommended. Echocardiogram was also performed recently ( with aforementioned admission) and revealed possible progression of the degree of mitral regurgitation, with preserved LVEF and normal wall motion. Amlodipine was attempted with low blood pressures noted, and therapy was subsequently stopped. At present, the patient is feeling very well. No cardiovascular complaints ( chest pains or pressure, PND or orthopnea) and no headache. Blood pressure was noted to be 150 mm Hg systolic with lack of symptoms. Plan: (1) Would continue Coreg, Lisinopril, and low dose Amlodipine (2) IS to bedside for more cognizant breathing (3) Crestor to continue as at present (4) ASA should continue with CV risk profile (5) We will continue to follow patient and blood pressure measurements while in house - she will need outpatient follow up with cardiology and PCP to ensure that therapy is working to suppress elevation in blood pressures that have been noted. Subjective: No cardiovascular complaints Reviewed/Discussed With: family Objective: Vital Signs (8 Hrs) Temp Pulse Resp BP Pulse Ox 09/30/17 11:20 36.6 C 79 18 148/68 H 97 09/30/17 08:00 37.1 C 73 18 171/83 H 96 09/30/17 04:00 37.1 C 70 17 163/72 H 97 Intake/Output (24 Hrs) 09/29/17 09/30/17 10/01/17 05:59 05:59 05:59 Intake Total 990 Output Total 1600 Balance -610 Intake: Oral (ml) 990 Output: Urine (ml) 1600 Toilet 1600 Other: Weight 51.5 kg Number of Voids Toilet 1 Result Diagrams: 09/30/17 04:11 09/30/17 04:11 Cardiac Labs: Cardiac Lab Results (72 Hrs) 09/30/17 09/29/17 04:11 17:35 Troponin I 0.369 H 0.338 H Telemetry: normal sinus rhythm - Physical Exam Constitutional: WDWN, healthy appearing, no apparent distress Eyes: PERRL, EOMI Ears, Nose, Mouth, Throat: moist mucous membranes Cardiovascular: regular rate and rhythm, no murmurs, pulses symmetric bilat, No jugular vein distention Peripheral Pulses: 2+: dorsalis-pedis (R), dorsalis-pedis (L) Respiratory: clear to auscultate bilat, no crackles Gastrointestinal: normoactive bowel sounds Skin: no rashes, no edema Musculoskeletal: no muscular tenderness Neurologic: AAOx3, CN II-XII grossly intact Psychiatric: cooperative, interactive, following commands ICD10 Worksheet Patient Problems: Problems Problem Status Onset Elevated troponin Acute Hypertension Acute Vertigo Acute
--- NOTE | 2017-09-30 14:47 | CPEKG ---
Heart Rate: 67 RR Interval: 896 P-R Interval: 152 QRSD Interval: 80 QT Interval: 420 QTC Interval: 444 P Trevett: 38 QRS Trevett: 14 T Wave Trevett: 41 EKG Severity - NORMAL ECG - EKG Impression: SINUS RHYTHM Electronically Signed By: Roel Arreaga 30-Sep-2017 15:36:01
--- NOTE | 2017-09-30 18:32 | HOSPPROG ---
Hospitalist Progress Note Assessment/Plan: * HTN urgency -continue lisinopril, coreg -increase Norvasc 2.5mg BID * Troponin elevation -recent stress test with "slight reversibility" -no cath per cards * Hyperlipidemia -continue Crestor * Slight creatinine bump -follow Subjective: No new complaints Objective: Vital Signs Temp Pulse Resp BP Pulse Ox 36.6 C 65 20 152/76 H 91 L 09/30/17 15:10 09/30/17 17:37 09/30/17 15:10 09/30/17 17:37 09/30/17 15:10 Laboratory Results 09/30/17 04:11 09/30/17 04:11 09/29/17 09/30/17 10/01/17 05:59 05:59 05:59 Intake Total 990 750 Output Total 1600 700 Balance -610 50 EKG viewed, my personal interpretation is - NSR, no ischemic changes d/w Dr. banks - keep inpatient to follow BP, increase Norvasc to BID - Physical Exam Constitutional: no apparent distress, appears nourished, not in pain Cardiovascular: regular rate and rhythym, no murmur, rub, or gallop Respiratory: no respiratory distress, no rales or rhonchi, clear to auscultation Gastrointestinal: normoactive bowel sounds, soft, non-tender abdomen, no palpable masses Skin: no rashes or abrasions, no fluctuance, no induration Neurologic: AAOx3, sensation intact bilaterally Psychiatric: interacting appropriately, not anxious, not encephalopathic, thought process linear ICD10 Worksheet Patient Problems: Problems Problem Status Onset Elevated troponin Acute Hypertension Acute Vertigo Acute
[2017-09-30] MEDS ORDERED: ROSUVASTATIN CALCIUM 10 MG TAB PO SCH (21:00)
[2017-10-01] MEDS: ACETAMINOPHEN 500 MG TAB PO PRN (04:24)
[2017-10-01] MEDS: CARVEDILOL 6.25 MG TAB PO SCH ×2 (09:24→18:12)
[2017-10-01] MEDS: LISINOPRIL 40 MG TAB PO SCH (09:24)
[2017-10-01] MEDS: CARBOXYMETHYLCELLULOSE 0.5% 0.4 ML DROPERETTE EACHEYE SCH (09:26)
[2017-10-01] MEDS: ENOXAPARIN 30 MG/0.3 ML SYR SC SCH (09:26)
--- NOTE | 2017-10-01 11:39 | PDCARPN ---
Cardiology Progress Note Chief Complaint: No cardiovascular complaints per patient Assessment/Plan: Assessment: 10-01-17 No cardiovascular complaints overnight. Addition of Norvasc 2.5 mg seems to have had some effect on blood pressures (better control noted today). Yesterday 's troponin was slightly more elevated that the three the day prior. Stress test "reversibility" was noted to the septal wall, and noted to be very small. Echocardiogram was ordered today (formal read after this not completed) as well as repeat assessment of troponins. Angiography continues to be an option, but cardiology wanting to more aggressively treat blood pressure elevations that have been noted. Blood pressure overnight was much better controlled, but 0400 blood pressure was elevated (? being awakened at 0400 effect). Morning blood pressure is better controlled. I did speak (via phone) with daughter about our plans for the day, which would be to continue medical therapy. We can assess biomarker (would like to see drop) as well as non invasive, non nuclear echocardiography (for wall motion and systolic function). 09-30-17 No cardiovascular complaints were voiced, but as above, the patient has noted a mild headache. Initial blood pressure (by my assessment) was 183/84 mm Hg. With deep breathing for all of about 2 minutes, her reassessed blood pressure was noted to be 153/80 mm Hg. She was dosed with CCB (amlodipine 2.5 mg) this morning, about 1-1.5 hours prior. Patient voiced concerns about the choice of this therapy given history of hypotension with it's use (after four doses) not long ago. No cardiovascular complaints of chest pains or pressure. Ongoing mild elevation to the troponin (not trending down, or up - appreciably). I discussed the case with Dr. Dorinda Stanford two days prior, and reviewed MPI testing from 08/02 with the patient. I also spoke via phone with the patient's daughter to facilitate understanding of the route (non invasive at present) that we are following. Angiography is an option, but given (a) lack of symptoms , (b) no dynamic ST/T wave changes, and (c) stable troponin elevation - thought secondary to the degree of hypertension that was noted upon arrival, we are working the optimization of medical therapy more aggressively. 09-29-17 Patient is a 81 y/o female, well known to [facility] (Dr. 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 Blood pressure elevations have been noted, and recent outpatient visit with Dr. Dorinda Stanford (09-24-17) with blood pressure at that time of 154/84 mm Hg, but more concerns about nocturnal palpitations. Given these symptoms, arrangements for Cardionet were made after holter monitor only revealed occasional PVCs (but no atrial fibrillation). Compliance with antihypertensive therapy has been very good, but elevation in pressures continues to be noted. Associated with the headaches was an episode of abdominal pressure and nausea, but no emesis. Hospitalization in the recent past (for influenza) with mild elevation in troponin noted at that time. Stress testing with a small septal region of "possible" ischaemia noted. Elevation in troponin was thought to be secondary to the flu, and no further invasive testing was recommended. Echocardiogram was also performed recently ( with aforementioned admission) and revealed possible progression of the degree of mitral regurgitation, with preserved LVEF and normal wall motion. Amlodipine was attempted with low blood pressures noted, and therapy was subsequently stopped. At present, the patient is feeling very well. No cardiovascular complaints ( chest pains or pressure, PND or orthopnea) and no headache. Blood pressure was noted to be 150 mm Hg systolic with lack of symptoms. Plan: (1) Antihypertensive therapy to continue with beta blockers, ALMA DELIA inhibitors, and calcium channel blockers (2) Crestor for HLP to continue (3) IS use to slow breathing rate (4) ASA (5) Will review testing and provide further recommendations Subjective: No cardiovascular complaints Reviewed/Discussed With: family, hospitalist, multidisciplinary team Objective: Vital Signs (8 Hrs) Temp Pulse Resp BP Pulse Ox 10/01/17 08:00 36.6 C 70 18 158/73 H 95 10/01/17 04:00 36.6 C 68 16 162/83 H 93 Intake/Output (24 Hrs) 09/30/17 10/01/17 10/02/17 05:59 05:59 05:59 Intake Total 990 1100 Output Total 1600 1750 Balance -610 -650 Intake: Oral (ml) 990 1100 IV Intake (ml) 0 Output: Urine (ml) 1600 1750 Toilet 1600 1750 Other: Weight 51.5 kg 51.3 kg Number of Voids Toilet 1 1 Number of Stools Toilet 1 Result Diagrams: 09/30/17 04:11 10/01/17 04:01 Cardiac Labs: Cardiac Lab Results (72 Hrs) 09/30/17 09/29/17 04:11 17:35 Troponin I 0.369 H 0.338 H Telemetry: normal sinus rhythm - Physical Exam Constitutional: WDWN, healthy appearing, no apparent distress Eyes: PERRL, EOMI Ears, Nose, Mouth, Throat: moist mucous membranes Cardiovascular: regular rate and rhythm, systolic murmur, pulses symmetric bilat , No jugular vein distention Peripheral Pulses: 2+: dorsalis-pedis (R), dorsalis-pedis (L) Respiratory: clear to auscultate bilat, no crackles, no wheezes Gastrointestinal: normoactive bowel sounds Skin: no edema Musculoskeletal: no muscular tenderness Neurologic: AAOx3, CN II-XII grossly intact Psychiatric: cooperative, interactive, following commands ICD10 Worksheet Patient Problems: Problems Problem Status Onset Elevated troponin Acute Hypertension Acute Vertigo Acute
--- NOTE | 2017-10-01 12:48 | ECHO ---
[email or web address] [address] [address] Main: [phone] Fax: Transthoracic Echocardiogram Name: PATRIC VOSS MR#: [id number] Study Date: 10/01/2017 Study Time: 10:40 AM Date of : 1935 Age: 81 year(s) Height: 149.9 cm (59 in.) Weight: 51.26 kg (113 lb.) BSA: 1.45 m2 Gender: Female Examination: Echo Indication: HTN Crisis, Increased Troponin levels Image Quality: Contrast: Requested by: Reji Motley BP: 158 mmHg/73 mmHg Heart Rate: Rhythm: Normal sinus rhythm Indication: HTN Crisis, Increased Troponin levels Procedure Staff Top Executive: Reese Aldridge RDCS Reading Physician: Reji Motley Requesting Provider: Conclusions: Normal size left ventricle. No LV hypertrophy. Normal global systolic LV function. EF is 78 %. No regional wall motion abnormality. Diastolic dysfunction is present. . Normal RV function. The left atrium is normal in size. The right atrium is normal in size. Mild mitral valve regurgitation is present. Mild aortic valve regurgitation is present. Trivial tricuspid valve regurgitation. The aorta is normal. Measurements: Chambers Valvular Assessment AV/MV Valvular Assessment TV/PV Normal Normal Normal Name Value Range Name Value Range Name Value Range Ao Michelle (MM): 2.1 cm (2.2 cm-3.7 LVOT Vmax: 0.82 m/s (0.7 m/s-1.1 PV Vmax: 1.10 m/s (0.6 m/s-0.9 cm) m/s) m/s) IVSd (2D): 0.9 cm (0.6 cm-1.1 AR (PHT): 611 ms ( - ) PV PGmax: 5 mmHg ( - ) cm) MV E Vmax: 0.53 m/s ( - ) LVDd (2D): 3.8 cm (3.9 cm-5.3 MV A Vmax: 0.80 m/s ( - ) cm) MV E/A: 0.66 ( - ) LVDs (2D): 2.1 cm (2.1 cm-4 MV meanP mmHg ( - ) cm) LVPWd (2D): 1.0 cm ( - ) LVOTd 2.1 cm 2.1 cm mm LVEF (2D): 78 (>=54 %) Patient: PATRIC VOSS Study Date: 10/01/2017 Page 1 of 2 10:40 AM Continued Measurements: Chambers Valvular Assessment AV/MV Name Value Name Value LADs Lon.8 cm MV Annulus: 3.1 cm LA Area: 16.4 cm2 MV E' Septal: 0.04 m/s LA Volume: 44 ml MV E/E' Septal: 12.90 LA Volume Index: 30.3 ml/m2 MV E/E' Lateral: 10.20 MV VTI: 27.50 cm MR Vena Contracta: 0.4 cm MR ERO: 0.050 cm2 MR PISA radius: 4 mm MR Reg. Volume: 12 ml MR Reg. Fraction: 6 % AR Vmax: 4.15 cm/s AR ERO: 0.070 cm2 AR PISA radius: 0.4 cm AR Reg. Volume: 17.0 ml AR VTI: 245.0 cm Findings: Left Ventricle: Normal size left ventricle. No LV hypertrophy. Normal global systolic LV function. EF is 78 %. No regional wall motion abnormality. Diastolic dysfunction is present. . Right Ventricle: Normal size right ventricle. Normal RV function. Left Atrium: The left atrium is normal in size. Right Atrium: The right atrium is normal in size. Mitral Valve: The mitral valve is normal in appearance. Mild mitral valve regurgitation is present. Aortic Valve: The aortic valve is tri-leaflet. Mild aortic cusp calcification is noted. Mild aortic valve regurgitation is present. Tricuspid Valve: The tricuspid valve appears normal. Trivial tricuspid valve regurgitation. Pulmonic Valve: Pulmonary valve not well visualized. Aorta: The aorta is normal. Pericardium: No pericardial effusion. (No Signature Object) Patient: PATRIC VOSS Study Date: 10/01/2017 Page 2 of 2 10:40 AM [id number]
--- NOTE | 2017-10-01 16:40 | HOSPPROG ---
Hospitalist Progress Note Assessment/Plan: 81-year-old which is trended downward late cardiac echo has been normal showing no regional wall motion abnormality. Patient was originally discharge but her blood pressure again jm in the late afternoon and the patient is slightly anxious, and also lives alone. Thus the discharge order has been rescinded and will continue her usual medications. A troponin will be ordered for the morning. Should she have chest pain an ECG is recommended. New Plan: Continue as an inpatient for another 12-18 hours and with blood pressure monitoring. Repeat troponin in the a.m.. Time of discharge in re-evaluation was 60 min. Objective: Vital Signs Temp Pulse Resp BP Pulse Ox 36.6 C 66 18 119/57 L 94 10/01/17 12:00 10/01/17 12:00 10/01/17 12:00 10/01/17 12:00 10/01/17 12:00 Laboratory Results 09/30/17 04:11 10/01/17 04:01 09/30/17 10/01/17 10/02/17 05:59 05:59 05:59 Intake Total 990 1100 Output Total 1600 1750 Balance -610 -650 ICD10 Worksheet Patient Problems: Problems Problem Status Onset Vertigo Acute Elevated troponin Acute Hypertension Acute
--- NOTE | 2017-10-01 18:55 | GDS ---
[f rep st] DISCHARGE SUMMARY NEW AND ACUTE DIAGNOSES: On this admission: 1. Hypertensive urgency. 2. Troponin elevation; trending down at the time of discharge. 3. Headache secondary to hypertension. 4. Hyperlipidemia, currently under treatment. CONSULTATION: Cardiology. PROCEDURE: Echocardiogram showing an EF of 78% without regional wall motion abnormalities. There wa s mild MR, TR, and aortic insufficiency. HOSPITAL COURSE: This is a 81-year-old female, who presented with a complaint of headache and was no marciano to have significantly elevated high blood pressure and noted to have elevated troponins. An echo cardiogram showed no regional wall motion abnormality. The troponin slowly trended downwardly and wa s significantly down at the time of discharge. Cardiology evaluation indicated that they felt comfor table that the elevated troponin was secondary to her hypertension as there were no regional wall mot ion abnormalities. At the time of discharge, her blood pressure was in good control. The patient has a concern regarding coronary artery disease and an angiography has been considered, b md Cardiology felt they wanted to be more aggressive treating her blood pressure before going to [facility]. The patient was not experiencing any chest pain, and her troponin was trending down at the time of discharge. DISCHARGE MEDICATIONS: New medications: None. Continued medications: Lisinopril 40 mg daily; carvedilol 6.25 mg b.i.d.; Tylenol p.r.n.; aspirin 81 mg Thursday, Thursday, Thursday; meclizine 25 mg b.i.d. p.r.n.; rosuvastatin 2.5 mg Thursday, Thursday, Thursday; multivitamins daily; amlodipine 2.5 mg h.s.; propylene glycol eye drops 1 drop in each eye da jarvis. Stopped medications: None. PLAN: The patient has been instructed to watch her blood pressure closely and take it twice a day an d record it. She is to keep a log. If she is having elevated blood pressures that are severe or any chest pain or shortness of breath, she is to return to the emergency department. Her follow-up care will be with Link Mazariegos. She will also follow up with [facility] on a p.r.n. basis. Time this discharge required 45 minutes, greater than 50% to educational guidance counselor and coordinate care. /[id number]/MODL
[2017-10-02 08:15] VITALS: RESP 18
[2017-10-02] MEDS: ASPIRIN EC 81 MG TAB PO SCH (08:31)
[2017-10-02] MEDS: LISINOPRIL 40 MG TAB PO SCH (08:32)
[2017-10-02] MEDS: CARBOXYMETHYLCELLULOSE 0.5% 0.4 ML DROPERETTE EACHEYE SCH (08:32)
[2017-10-02] MEDS: CARVEDILOL 6.25 MG TAB PO SCH (08:32)
[2017-10-02] MEDS: ENOXAPARIN 30 MG/0.3 ML SYR SC SCH (08:33)
[2017-10-02 12:06] VITALS: BP 132/66; PULSE 79; TEMP 98.1; O2SAT 96
== END 2017-10-02 15:07 | disposition home or self-care (01) | DRG 305 ==
LOC: F2W 09-29 01:00 → OBSVTOIN 09-29 12:58
PROVIDERS: ADMIT Family Medicine; ATTEND Internal Medicine Pulmonary Disease
DX: I16.0 Hypertensive urgency (principal); E78.5 Hyperlipidemia, unspecified; R79.89 Other specified abnormal findings of blood chemistry; I08.3 Combined rheumatic disorders of mitral, aortic and tricuspid valves
CPT/HCPCS: 96374; J0360; J1650; J2060

== ENCOUNTER → 2017-10-26 | Outpatient (CLI) | payer OTHER, BC ==
[~2017-10-26] MED LIST: IOPAMIDOL (ISOVUE 370) 100 ML BTL IV ONE
== END ==
LOC: FIMAGING 10:40
PROVIDERS: ATTEND Physician Assistant Medical
DX: I25.10 Atherosclerotic heart disease of native coronary artery without angina pectoris (principal); I10 Essential (primary) hypertension
CPT/HCPCS: 75574; Q9967

== ENCOUNTER → 2018-09-27 | Outpatient (CLI) | payer OTHER, BC | LOC: BHFA 14:00 | PROVIDERS: ATTEND Internal Medicine Cardiovascular Disease | DX: I25.10 Atherosclerotic heart disease of native coronary artery without angina pectoris (principal); I10 Essential (primary) hypertension ==